=== PATIENT | male | born 1985 | race Caucasian/White ===

== ENCOUNTER 2017-10-18 01:46 | Emergency (ER) | payer MEDICAID ==
[~2017-10-18] VITALS: Ht 175.3 cm; Wt 88.6 kg
[~2017-10-18 01:46] MED LIST: BACT800T5 PO; CLIN150 PO
[2017-10-18 01:51] VITALS: BP 155/92; PULSE 94; RESP 14; TEMP 97.6; O2SAT 100
[2017-10-18] MEDS ORDERED: LIDOCAINE HCL 2% 20 ML VIAL INFIL ONE (02:15)
[2017-10-18] MEDS ORDERED: LIDOCAINE HCL 2% 50 ML VIAL INFIL ONE (02:15)
[2017-10-18] MEDS ORDERED: IBUPROFEN 600 MG TAB PO ONE (02:45)
[2017-10-18] MEDS ORDERED: SULFAMETHOXAZOLE-TRIMETHOPRIM DS 800-160 MG TAB PO ONE (02:45)
[2017-10-18] MEDS ORDERED: CLINDAMYCIN 150 MG CAP PO ONE (02:45)
--- NOTE | 2017-10-18 03:16 | RADRPT ---
EXAM DATE/TIME: 10/18/2017 02:57 [place] COMPARISON: No previous studies available for comparison. INDICATIONS : Right hand, third digit pain post weight lifting accident. MEDICAL HISTORY : None. SURGICAL HISTORY : None. ENCOUNTER: Initial ACUITY: 1 day PAIN SCORE: 7/10 LOCATION: Right upper extremity FINDINGS: Three view examination of the right hand demonstrates no dislocation, or fracture. There does appea r to be some soft tissue swelling along the dorsum of the distal interphalangeal joint of the third d igit, however. The carpal bones appear intact. The interphalangeal and metacarpophalangeal joints ar e intact. Bony mineralization is normal. CONCLUSION: 1. Soft tissue swelling dorsally over the distal interphalangeal joint of the third ray. 2. No associated fracture. Krish Walden MD on October 18, 2017 at 3:14 Board Certified Radiologist. This report was verified electronically.
[2017-10-18] MEDS ORDERED: BACT800T5 PO (03:24)
[2017-10-18] MEDS ORDERED: IBUP-232 PO (03:24)
[2017-10-18] MEDS ORDERED: CLIN300C5 PO (03:24)
--- NOTE | 2017-10-18 03:25 | PD ---
HPI Chief Complaint: Skin Problem Time Seen by Provider: 01:54 Travel History International Travel<30 days: No Contact w/Intl Traveler<30days: No Traveled to known affect area: No History of Present Illness HPI Patient reports that he slammed his finger between 2 weights today at the gym and then progressively through the day it started to look purulent to him. His aunt is a nurse and she stuck a 25 cc syringe and there but did not express any pus. Patient comes in complaining of swollen finger with purulent accumulation underneath the nailbed. Patient denies diabetes and it all started he said this morning after injury it looks like a periosteal but the swelling pulp area of the pad is somewhat tense. But not fluctuance he took one Bactrim double strength pill this a.m. still the fingers worsen PFSH Past Medical History ?: Not Social History Alcohol Use: Yes Tobacco Use: Yes Substance Use: No Allergies-Medications (Allergen,Severity, Reaction): Coded Allergies: No Known Allergies (Verified Allergy, Unknown, 10/18/17) Reported Meds & Prescriptions Reported Meds & Active Scripts Active Tramadol (Tramadol HCl) 50 Mg Tab 50 Mg PO Q6H PRN Ibuprofen 600 Mg Tab 600 Mg PO Q6H PRN Clindamycin (Clindamycin HCl) 300 Mg Cap 300 Mg PO BID Bactrim DS (Sulfamethoxazole-Trimethoprim) 800-160 Mg Tab 1 Tab PO BID Cleocin (Clindamycin HCl) 150 Mg Cap 300 Mg PO Q8 7 Days Bactrim DS (Sulfamethoxazole-Trimethoprim DS) 1 Tab Tab 1 Tab PO BID Review of Systems Except as stated in HPI: all other systems reviewed are Neg (perionchial infection ) Physical Exam Narrative GENERAL: NON TOXIC APPEARING AWAKE ALERT SKIN: Warm and dry. HEAD: Atraumatic. Normocephalic. EYES: Pupils equal and round. No scleral icterus. No injection or drainage. ENT: No nasal bleeding or discharge. Mucous membranes pink and moist. NECK: Trachea midline. No JVD. CARDIOVASCULAR: Regular rate and rhythm. RESPIRATORY: No accessory muscle use. Clear to auscultation. Breath sounds equal bilaterally. GASTROINTESTINAL: Abdomen soft, non-tender, nondistended. Hepatic and splenic margins not palpable. MUSCULOSKELETAL: Extremities RIGHT HAND Middle finger has perionchial swelling purulent 1 cm area .. pad of finger also full but not firm nor fluctulant NEUROLOGICAL: Awake and alert. No obvious cranial nerve deficits. Motor grossly within normal limits. Five out of 5 muscle strength in the arms and legs. Normal speech. PSYCHIATRIC: Appropriate mood and affect; insight and judgment normal. Data Data Last Documented VS Vital Signs Date Time Temp Pulse Resp B/P (MAP) Pulse Ox O2 Delivery O2 Flow Rate FiO2 10/18/17 03:48 88 16 152/78 (102) 100 10/18/17 01:51 97.6 Orders Orders Lidocaine 2% Inj (Xylocaine 2% Inj) (10/18/17 02:15) Hand, Complete ([id number]) (10/18/17 ) Clindamycin (Cleocin) (10/18/17 02:45) Ibuprofen (Motrin) (10/18/17 02:45) Sulfamet-Trimeth Ds 800-160 Mg (Bactrim (10/18/17 02:45) Ed Discharge Order (10/18/17 03:33) MDM Medical Decision Making Medical Screen Exam Complete: Yes Emergency Medical Condition: Yes Differential Diagnosis Periocular infection versus [place] versus traumatic swelling versus tenosynovitis other Narrative Course I do a small incision over the periocular area expressed small amount of pus the fullness of the pad of the finger is reduced I do not feel it is a [place]. X-rays done to look for fracture. It is not fractured and there is no signs of fluctuance or effusion in the finger it is homogenously uniform I do not think an I&D further is necessary for the pad of the finger but will reduce with antibiotics I added clindamycin and Bactrim twice daily follow-up as an outpatient with hand Procedures Procedure Narrative I and D of paronchyal infection betadine and digital block 2 % lidocaine without epi and pus expressed then expressed pus and xray , pt tolerated well, Diagnosis Primary Impression: Perionychia of finger Qualified Codes: L03.011 - Cellulitis of right finger Referrals: Michelle Hurst MD Patient Instructions: General Instructions, Incision and Drainage (ED) Additional Instructions: follow up with you PCP of Dr Hurst hand surgeon if it worsens , Take all antibiotics for 7 days , Keep finger dry. Return if worse. Scripts Tramadol (Tramadol) 50 Mg Tab 50 MG PO Q6H Y for PAIN, #8 TAB 0 Refills Prov: Hernan Weiss MD 10/18/17 Ibuprofen (Ibuprofen) 600 Mg Tab 600 MG PO Q6H Y for Pain/Inflammation, #40 TAB 0 Refills Prov: Hernan Weiss MD 10/18/17 Clindamycin (Clindamycin) 300 Mg Cap 300 MG PO BID for Infection, #14 CAP 0 Refills Prov: Hernan Weiss MD 10/18/17 Sulfamethoxazole-Trimethoprim (Bactrim DS) 800-160 Mg Tab 1 TAB PO BID for Infection, #14 TAB 0 Refills Prov: Hernan Weiss MD 10/18/17 Disposition: 01 DISCHARGE HOME Condition: Good Hernan Weiss MD Oct 18, 2017 03:25
[2017-10-18] MEDS ORDERED: TRAM50TA PO (03:26)
[2017-10-18 03:48] VITALS: BP 152/78
== END 2017-10-18 03:50 | disposition home or self-care (01) ==
LOC: PHED 01:46
DX: L03.011 Cellulitis of right finger (principal); Z72.0 Tobacco use; W23.1XXA Caught, crushed, jammed, or pinched between stationary objects, initial encounter
CPT/HCPCS: 10060; 73130